=== PATIENT | female | born 1940 | race Caucasian/White ===

== ENCOUNTER 2020-10-13 20:44 | Inpatient (IN) | payer MEDICARE, SELFPAY ==
[2020-10-13] VITALS (7 sets, daily range): BP systolic 140; BP diastolic 74; PULSE 80–87; RESP 16–27; TEMP 36.7; O2SAT 84–100
--- NOTE | ~2020-10-13 | XR_ITS ---
EXAMINATION: XR chest 1V portable DATE: 10/14/2020 08:52 INDICATION: Congestive heart failure TECHNIQUE: frontal view of the chest was obtained. COMPARISON: Chest radiograph dated 10/13/2020 FINDINGS: Lung volumes are decreased, particularly on the right where there is elevation of the right hemidiaph ragm. Interval decrease in opacities in the bilateral mid and lower lung zones. No pleural effusion o r pneumothorax. The cardiomediastinal silhouette is normal. Surgical clips at the right axilla. IMPRESSION: 1. Decreasing opacities in the bilateral mid and lower lung zones which could represent improving pul monary edema, pneumonia or atelectasis. 2. Small lung volumes with elevation of the right hemidiaphragm. Reviewed, dictated and finalized at location A. IMPRESSION: 1. Decreasing opacities in the bilateral mid and lower lung zones which could r epresent improving pulmonary edema, pneumonia or atelectasis. 2. Small lung volumes with elevation of the right hemidiaphragm.
--- NOTE | ~2020-10-13 | XR_ITS ---
EXAMINATION: XR chest 1V portable INDICATION: Hypoxia and shortness of breath, cough TECHNIQUE: Portable AP chest at 2229 COMPARISON: None available FINDINGS: There are patchy bilateral airspace opacities throughout all lung zones. No pleural effusio n or pneumothorax is identified. There is elevation of the right hemidiaphragm. The cardiomediastinal silhouette is normal for technique. There are surgical clips in the right axilla. IMPRESSION: 1. Diffuse lung disease, consistent with pneumonia and/or pulmonary edema. Reviewed, dictated and finalized at location A.
--- NOTE | 2020-10-13 21:37 | ECG_ITS ---
Measurements Intervals [place] Rate: 86 P: 64 VT: 215 QRS: -22 QRSD: 77 T: -20 QT: 360 QTc: 431 Interpretive Statements SINUS OR ECTOPIC ATRIAL RHYTHM LOW QRS VOLTAGE IN PRECORDIAL LEADS INFERIOR INFARCT, AGE INDETERMINATE BASELINE ARTIFACT- II, AVR, AVF, V1, V3-V6 ABNORMAL ECG Electronically Signed On 10-14-2020 5:52:02 CDT by Chris Car D.O.
--- NOTE | 2020-10-13 21:39 | ED.SOB ---
HPI - SOB/Dyspnea General Chief Complaint: Shortness of Breath/Dyspnea Stated Complaint: sick, feels like pneumonia Time Seen by Provider: 10/13/20 21:29 History of Present Illness HPI Narrative: 80 yo female w/ h/o atrial fibrillation presents to the ED for SOB. She has had issues with mild GLOVER for awhile. This has become significantly worse over the past 10 days or so. She reports that she is not short of breath at rest, but with very minimal exertion she is instantly. On arrival here she was found to have a room air O2 sat of 84%, which drop further with movmenet. She says that feels like when she had pneumonia. She had her COVID vaccine more than 2 weeks ago, unsure of dates. No fever, chest pain, extremity swelling. Related Data Home Medications Medication Instructions Recorded Confirmed alprazolam QID PRN 10/14/20 apixaban [Eliquis] mg BID 10/14/20 ferrous sulfate [FeroSul] mg DAILY 10/14/20 furosemide DAILY 10/14/20 lisinopril DAILY 10/14/20 magnesium oxide 200 mg PO DAILY 10/14/20 10/14/20 omeprazole [Prilosec] 40 mg PO BID 10/14/20 10/14/20 potassium chloride meq PO DAILY 10/14/20 sotalol BID 10/14/20 Allergies Allergy/AdvReac Type Severity Reaction Status Date / Time No Known Allergies Allergy Verified 10/14/20 00:10 Review of Systems Review of Systems: All systems reviewed & are unremarkable except as noted in HPI and below Constitutional: Constitutional: Denies chills and Denies fever(s) Eyes: Eyes: Reports no additional eye complaints ENT: Denies sore throat Cardiovascular: Cardiovascular: Denies chest pain Respiratory: Respiratory: Reports dyspnea Gastrointestinal: Gastrointestinal: Denies abdominal pain, Denies nausea and Denies vomiting Genitourinary: Genitourinary: Reports no additional female genitourinary complaints Musculoskeletal: Musculoskeletal: Reports no additional musculoskeletal complaints Neurologic: Reports system reviewed and no additional complaints, except as documented [facility] Past Medical History Medical History (Updated 10/14/20 @ 01:42 by Jimbo Covington MD) Atrial fibrillation Breast cancer Hypertension Social History Social History (Updated 10/14/20 @ 01:38 by iJmbo Covington MD) Smoking status: Never smoker Alcohol intake: never Substance use: never Exam Const: General: healthy appearing, no acute distress and alert Orientation/consciousness: patient oriented x3 HENMT: Head: normal to inspection Neck: Neck: normal visual inspection Chest: Chest palpation & inspection: normal inspection of the chest Resp: Effort & Inspection: normal respiratory effort Auscultation: crackles diffuse Cardio: Rate: regular rate Rhythm: regular rhythm GI: GI Palp: Yes Soft to palpation and No Tenderness to palpation present (GI) Skin: General skin exam: normal color Neuro: General: patient oriented x3, moves all extremities, no focal motor deficits and CN's II-XI intact bilaterally Speech: normal speech Extrem: General: normal to inspection and no edema Psych: Mental Status: mental status grossly normal Affect: normal affect Attitude: cooperative Thought content: Yes Normal thought content present Course Vital Signs Vital signs: Vital Signs Temperature 36.7 C 10/13/20 21:29 Pulse Rate 87 10/13/20 21:29 Respiratory Rate 16 10/13/20 21:29 Blood Pressure 140/74 10/13/20 21:29 Pulse Oximetry 84 L 10/13/20 21:29 Temperature 36.7 C 10/13/20 21:29 Pulse Rate 84 10/14/20 00:31 Respiratory Rate 23 H 10/14/20 00:31 Blood Pressure 142/76 H 10/14/20 00:30 Pulse Oximetry 99 10/14/20 00:31 MDM - SOB/Dyspnea MDM Narrative Medical decision making narrative: CXR shows diffuse infiltrates. Most likely pneumonia. I will give abx and a single dose of lasix and dexamethasone as well given the uncertain etiology. Differential Diagnosis Differential diagnosis: Likely congestive heart failure, community acquired
[2020-10-13] MEDS: ALBUTEROL SULFATE NEB 2.5 MG/0.5 ML INH 5 MG INHALATION (21:47)
[2020-10-13] MEDS: IPRATROPIUM BR 0.02% INH SOLN 0.5 MG/2.5 ML VIAL INHALATION (21:47)
[2020-10-13 22:06] LABS: Alveolar/Arterial O2 Gradient 67.2 mmHg; Base Excess ABG 0.5 mEq/l (+/-2.0); Carboxyhemoglobin 0.8 % THb (0-2.0); Device NASAL CANNULA; Fractional Inspired Oxygen 28 %; HCO3 ABG 24.6 mEq/l (22.0-26.0); Methemoglobin ABG 0.3 %THb (0-1.5); Modified Allen's Test Pass; Oxygen Content ABG 17.6 %vol (16.0-22.0); Oxygen Saturation ABG 96.9 % (95.0-100.0); Oxyhemoglobin 95.2 % THb (90.0-100.0); PCO2 ABG 37.9 mmHg (35.0-45.0); PO2 ABG 87.7 mmHg (80.0-100.0); PO2 FiO2 Ratio Arterial Blood 3.13 %; Reduced Hemoglobin 3.7 %THb (0-5.0); Site Drawn LEFT RADIAL; Total Hemoglobin 13.1 g/dL (12.0-18.0)
[2020-10-13 22:13] LABS: Basophils Percent Auto 0.2 % (0.2-1.2); Eosinophils Absolute Auto 0.3 K/mm3 (0-0.3); Eosinophils Percent Auto 3.6 % (0-4.4); Hematocrit 39.4 % (37.0-47.0); Hemoglobin 12.8 g/dL (12.0-15.0); Immature Granulocyte Absolute 0.05 K/mm3 (0.00-0.031); Immature Granulocyte Percent A 0.6 % (0-0.5); Lymphocytes Absolute Auto 1.22 K/mm3 (0.9-3.2); Mean Corpuscular HGB Conc 32.5 g/dl (32-36); Mean Corpuscular Hemoglobin 28.1 pg (26-34); Mean Corpuscular Volume 86.4 fl (80-100); Mean Platelet Volume 10.5 fl (7.4-10.4); Monocytes Percent Auto 11.7 % (2.6-8.5); Neutrophils Absolute Auto 5.6 K/mm3 (1.3-6.7); Neutrophils Percent Auto 68.9 % (45.5-73.1); Platelet Count Result 315 k/mm3 (150-375); Red Blood Count 4.56 M/mm3 (4.2-5.4); Red Cell Distribution Width 13.1 % (11.5-14.5); White Blood Count 8.1 K/mm3 (4.5-10.0)
[2020-10-13 22:22] LABS: INR 1.2; Prothrombin Time 15.7 Seconds (11.1-14.7)
[2020-10-13 22:23] LABS: Partial Thromboplastin Time 28.4 SECONDS (22.3-36.8)
[2020-10-13 22:25] LABS: D Dimer 0.39 ug/mL (<0.48)
[2020-10-13 22:28] LABS: Alanine Aminotransferase 12 U/L (4-35); Albumin Level 4.3 g/dL (3.5-5.1); Alkaline Phosphatase 80 U/L (38-126); Anion Gap 6 mmol/L (8-16); Aspartate Amino Transferase 35 U/L (14-36); Bilirubin,Total 0.7 mg/dL (0.2-1.3); Blood Urea Nitrogen 14 mg/dL (7-17); Calcium 9.2 mg/dL (8.4-10.2); Carbon Dioxide 28 mmol/L (22-30); Chloride 104 mmol/L (98-107); Estimated Glomerular Filt Rate > 60; Glucose 127 mg/dL (65-105); Potassium 4.4 mmol/L (3.4-5.0); Sodium 138 mmol/L (137-145)
[2020-10-13 22:34] LABS: NT Pro B Type Natriuretic Pept 320 pg/mL (5-100); Troponin I < 0.012 ng/mL (0.000-0.034)
[2020-10-14] VITALS (15 sets, daily range): BP systolic 114–146; BP diastolic 58–79; PULSE 70–101; RESP 16–25; TEMP 36.3–36.5; O2SAT 91–99; BMI 25.0
[2020-10-14] MEDS: FUROSEMIDE INJ 40 MG/4 ML VIAL IV PUSH ×2 (00:25→09:51)
[2020-10-14] MEDS: DEXAMETHASONE SOD PHOS INJ 4 MG/ML VIAL 10 MG IV PUSH (00:26)
--- NOTE | 2020-10-14 02:11 | ADMGEN ---
This patient, Lazara Larkin, was admitted to [facility] Surg Room 311-01. Patient/family oriented to hospital policies and general routines including ID bracelet, bed and alarms, visiting hours, pain management, procedures, bathroom and other care routines, personal items, smoking policy, room service/diet, and visiting hours. Information on how to activate the Rapid Response Team has been discussed. Patient/Family are encouraged to report perceived risks to care and to ask questions if they do not understand what they are told or what they should do.
--- NOTE | 2020-10-14 05:32 | PM.IMHP ---
H&P: HPI History of Present Illness Date/Time: 10/14/20 05:32 Chief Complaint: Shortness of breath and cough Narrative: 80-year-old female with past medical history of paroxysmal atrial fibrillation on chronic anticoagulation and CHF who presented to the ER with progressive shortness of breath and cough. The patient reports that she has had 2 episodes of pneumonia in the last couple of years. She was suspicious that she had pneumonia again. She reports having dyspnea on exertion that is been worsening over the last 2 weeks. Her symptoms significantly worsened over the last 3 days. She reports that her cough has been productive of clear sputum. She has not been having any fevers. Her white count was normal on admission. She denies any chest pain, paroxysmal nocturnal dyspnea, orthopnea or lower extremity swelling. She actually denies a history of CHF but does take Lasix at home on a daily basis. She reports that her weight has been stable over the last couple of weeks. She has not had any recent changes in her cardiac medications. Her oven drier tender is Dr. Still. She has not had any recent ill contacts. She had her 2nd COVID vaccine 2 months ago. She has not been having any fevers, chills, loss of taste or loss of smell. On arrival to the ER the patient was noted to be hypoxic with saturations of 74% with activity and 84% at rest. She is placed on 4 L nasal cannula with improvement in her oxygen saturations to 100%. Review of Systems Review of Systems: Narrative: 12 systems were reviewed with pertinent positives and negatives per HPI. Except as documented in the HPI, all other systems were reviewed and are negative. [facility] Past Medical History Medical History (Updated 10/14/20 @ 08:42 by Tonya Guthrie DO) Anxiety Atrial fibrillation Breast cancer Hypertension Overactive bladder due to prolapse of female genital organ Surgical History Surgical History (Updated 10/14/20 @ 05:36 by Tonya Guthrie DO) History of cardiac radiofrequency ablation (~2012) History of right mastectomy Status post cataract extraction of both eyes with insertion of intraocular lens Family History Family History (Updated 10/14/20 @ 08:39 by Tonya Guthrie DO) Other No pertinent family history Social History Social History (Updated 10/14/20 @ 08:40 by Tonya Guthrie DO) Social History: She has been for 16 years. She lives with her only daughter. She is independent in activities of daily living and reports that she is quite active. She is a lifelong nonsmoker and does not drink alcohol use illicit substances. 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 Primary care physician: Dr. Elise Sauer Code status: Full code Healthcare power of title attorney: Paradise Sal Smoking status: Never smoker Alcohol intake: never Substance use: never Gender identity (if verbalized by the patient): Female Spiritual care concerns: No Meds Home Medications and Allergies Home Medications Medication Instructions Recorded Confirmed Type alprazolam [Xanax] 0.25 mg PO QID PRN 10/14/20 10/14/20 History apixaban [Eliquis] 5 mg PO BID 10/14/20 10/14/20 History ferrous sulfate [FeroSul] 325 mg PO DAILY 10/14/20 10/14/20 History furosemide 40 mg PO DAILY 10/14/20 10/14/20 History lisinopril 5 mg PO DAILY 10/14/20 10/14/20 History magnesium oxide 200 mg PO DAILY 10/14/20 10/14/20 History omeprazole [Prilosec] 40 mg PO BID 10/14/20 10/14/20 History potassium chloride 20 meq PO DAILY 10/14/20 10/14/20 History sotalol 120 mg PO BID 10/14/20 10/14/20 History Allergies Allergy/AdvReac Type Severity Reaction Status Date / Time No Known Allergies Allergy Verified 10/14/20 00:10 Vital Signs Vital Signs - 24 hr 10/13/20 21:29 10/13/20 21:35 10/13/20 22:05 Temperature 98.1 F Pulse Rate 87 85 Respiratory Rate 16 22 H Blood Pressure 140/74 Pulse Oximetry 84 L 100 10/13/20 2
[2020-10-14] MEDS: FERROUS SULFATE 324 MG TABLET PO (09:50)
[2020-10-14] MEDS: SOTALOL HCL 40 MG TABLET 120 MG PO ×2 (09:50→20:12)
[2020-10-14] MEDS: POTASSIUM CHLORIDE 20 MEQ TABLET.ER PO (09:50)
[2020-10-14] MEDS: lisinopriL 5 MG TABLET PO (09:51)
[2020-10-14] MEDS: PANTOPRAZOLE 40 MG TABLET PO ×2 (09:51→17:04)
[2020-10-14] MEDS: MAGNESIUM OXIDE 200 MG TABLET PO (09:51)
[2020-10-14] MEDS: APIXABAN 5 MG TABLET PO ×2 (09:51→20:12)
[2020-10-14 10:17] LABS: Anion Gap 8 mmol/L (8-16); Blood Urea Nitrogen 15 mg/dL (7-17); Calcium 9.1 mg/dL (8.4-10.2); Carbon Dioxide 27 mmol/L (22-30); Chloride 101 mmol/L (98-107); Estimated CRCL calculation 52 ml/min; Estimated Glomerular Filt Rate > 60; Glucose 177 mg/dL (65-105); Potassium 4.7 mmol/L (3.4-5.0); Sodium 136 mmol/L (137-145)
--- NOTE | 2020-10-14 12:22 | PM.IMPN ---
Progress Note: A&P Assessment and Plan (1) Acute respiratory failure with hypoxia: Code(s): J96.01 - Acute respiratory failure with hypoxia Status: Acute Assessment and Plan: Patient presents with worsening shortness of breath, productive cough, and fatigue over last 1.5 weeks prior to arrival. Improved; Tolerating room air today. Suspect pneumonia vs. pulmonary edema vs. both are contributing. See treatment plans below. Wean supplemental O2 as tolerated to keep O2 saturations > 90%. (2) CHF (congestive heart failure): Qualifiers: Heart failure chronicity: acute on chronic Heart failure type: unspecified Qualified Code(s): I50.9 - Heart failure, unspecified Code(s): I50.9 - Heart failure, unspecified Status: Acute Assessment and Plan: Type unknown. She follows with Dr Still from [facility]. She is unsure of when her last echocardiogram was, notes she has not missed any doses of her Lasix. Continue IV lasix; monitor daily weight, I&Os, and renal function. Continue IRMA inhibitor. Echocardiogram pending. (3) Pneumonia: Qualifiers: Laterality: bilateral Lung location: unspecified part of lung Pneumonia type: due to unspecified organism Qualified Code(s): J18.9 - Pneumonia, unspecified organism Code(s): J18.9 - Pneumonia, unspecified organism Status: Acute Assessment and Plan: On empiric antibiotics for possible pneumonia. Continue Rocephin (day 2). Switch azithromycin to doxycycline (day 1) to avoid interaction with her home sotalol. COVID PCR pending. She was vaccinated with both doses of Moderna around 2 months ago. Pneumococcal and legionella urine antigens pending. Check influenza. Continue supportive care - add albuterol MDI PRN, tylenol for fevers, incentive spirometry. (4) Atrial fibrillation: Code(s): I48.91 - Unspecified atrial fibrillation Status: Chronic Assessment and Plan: Rate controlled in sinus rhythm. Discontinue cardiac telemetry. Continue home sotalol and her home anticoagulation with Eliquis. Monitor. (5) Hypertension: Code(s): I10 - Essential (primary) hypertension Status: Chronic Assessment and Plan: Blood pressures stable today maintained on her home lisinopril. Monitor BP and adjust treatment as needed. (6) Anxiety: Code(s): F41.9 - Anxiety disorder, unspecified Status: Chronic Assessment and Plan: Stable. No acute issues. Continue her home Xanax PRN. Subjective Date/time seen: 10/14/20 1145 Interval history: Ms. Larkin is a very pleasant 80yo F admitted for shortness of breath with acute respiratory failure. She reports feeling much better this morning. She notes her shortness of breath has improved. She is still having a productive cough. She has not missed any doses of her Lasix. Denies orthopnea or lower extremity swelling. Denies chest pain. Still has some SOB with walking to restroom. Tolerating oral intake without nausea or vomiting. Review of Systems Review of Systems: All systems reviewed & are unremarkable except as noted in HPI and below Exam Narrative: Exam Narrative: General: Female resting comfortably supine in bed in no acute distress. HEENT: Normocephalic, EOMI, oral mucosa moist. Cardiovascular: Heart rate and rhythm regular. Telemetry review shows sinus rhythm with PACs rates in 80s at present. Respiratory: Diminished breath sounds REY with some faint bibasilar crackles. Respirations even and non-labored. Tolerating room air. Abdomen: Soft, non-tender, non-distended, bowel sounds present. Extremities: Peripheral pulses intact. No edema or pain to palpation. Neuro: Awake and alert
[2020-10-14 19:55] LABS: SARS-CoV-2 RNA PCR Negative
[2020-10-15 06:00] VITALS: BP 124/56; PULSE 77; RESP 18; TEMP 36.7; O2SAT 90
[2020-10-15 06:29] LABS: Potassium 4.3 mmol/L (3.4-5.0)
[2020-10-15 08:00] VITALS: PULSE 80; RESP 18; O2SAT 97
[2020-10-15 09:25] VITALS: PULSE 80
[2020-10-15] MEDS: SOTALOL HCL 40 MG TABLET 120 MG PO (09:25)
[2020-10-15] MEDS: PANTOPRAZOLE 40 MG TABLET PO (09:25)
[2020-10-15] MEDS: FUROSEMIDE INJ 40 MG/4 ML VIAL IV PUSH (09:25)
[2020-10-15] MEDS: lisinopriL 5 MG TABLET PO (09:26)
[2020-10-15] MEDS: FERROUS SULFATE 324 MG TABLET PO (09:26)
[2020-10-15] MEDS: APIXABAN 5 MG TABLET PO (09:26)
[2020-10-15] MEDS: POTASSIUM CHLORIDE 20 MEQ TABLET.ER PO (09:26)
[2020-10-15] MEDS: MAGNESIUM OXIDE 200 MG TABLET PO (09:26)
[2020-10-15 09:36] VITALS: O2SAT 97
--- NOTE | 2020-10-15 10:35 | PM.DS ---
DS: Admitting Diagnosis Admitting Diagnosis Admitting Diagnosis: Acute respiratory failure with hypoxia DS: Discharge Diagnosis Discharge Diagnosis (1) Acute respiratory failure with hypoxia: Code(s): J96.01 - Acute respiratory failure with hypoxia Status: Acute Assessment and Plan: Date of Admission 10/13/20 Date of Discharge 10/15/20 Ms. Larkin is a very pleasant 80yo F with history of CHF, hypertension, anxiety, and paroxysmal atrial fibrillation on long-term anticoagulation with Eliquis who presented to the ED for evaluation of shortness of breath and productive cough worsening over the last 1 and a half weeks prior to arrival. She was started on supplemental oxygen in the ER when her O2 saturations were found to be 84% at rest on room air. Imaging demonstrated diffuse lung disease throughout all lung zones which may represent pneumonia and/or pulmonary edema. She responded quickly to a dose of IV lasix with improved shortness of breath. She was tested for COVID-19 by PCR and negative 10/14/20. She was treated for possible community acquired pneumonia with IV ceftriaxone and doxycycline (azithromycin avoided to prevent reaction with home sotalol). Her supplemental oxygen was weaned and she is tolerating room air with adequate oxygen saturations for over 24 hours. She follows with Dr Still from [facility] for her atrial fibrillation and she is stable rate controlled on her home Sotalol, maintained on her home anticoagulation with Eliquis. She is feeling much improved with the therapy outlined above and she is hemodynamically stable for discharge today 10/15 and she is comfortable with her discharge plan. She is encouraged to follow up with her PCP in 1 to 2 weeks and to follow up with Dr Still. Patient presents with worsening shortness of breath, productive cough, and fatigue over last 1.5 weeks prior to arrival. Improved; Tolerating room air today. Suspect pneumonia vs. pulmonary edema vs. both are contributing. See treatment plans below. (2) CHF (congestive heart failure): Qualifiers: Heart failure chronicity: acute on chronic Heart failure type: unspecified Qualified Code(s): I50.9 - Heart failure, unspecified Code(s): I50.9 - Heart failure, unspecified Status: Acute Assessment and Plan: Type unknown. She follows with Dr Still from [facility]. She is unsure of when her last echocardiogram was, notes she has not missed any doses of her Lasix. She was treated with 3 doses of IV lasix and will discharge with her home dose of oral lasix. Maintained on her home IRMA inhibitor. Echocardiogram will be cancelled as she is feeling well and will follow up with her established aeronautical test engineer after discharge. (3) Pneumonia: Qualifiers: Laterality: bilateral Lung location: unspecified part of lung Pneumonia type: due to unspecified organism Qualified Code(s): J18.9 - Pneumonia, unspecified organism Code(s): J18.9 - Pneumonia, unspecified organism Status: Acute Assessment and Plan: On empiric antibiotics for possible pneumonia. Continue Rocephin (day 3). Switch azithromycin to doxycycline (day 2) to avoid interaction with her home sotalol. Discharge with oral Augmentin to complete the course. COVID PCR negative. Pneumococcal and legionella urine antigens pending. Supportive care - albuterol MDI PRN, tylenol for fevers, incentive spirometry. Encouraged to take incentive spirometer home. (4) Atrial fibrillation: Code(s): I48.91 - Unspecified atrial fibrillation Status: Chronic Assessment and Plan: Rate controlled in sinus rhythm. Continue home sotalol and her home anticoagulation with Eliquis. (5) Hypertension: Code(s): I10
[2020-10-17 18:56] LABS: Pneumococcal Antigen Urine Not Detected (Not Detected)
[2020-10-18 17:41] LABS: Legionella pneumophila Ag Ur Not Detected (Not Detected)
== END 2020-10-15 11:45 | disposition home or self-care (01) | DRG 193 ==
LOC: ANHED 23:57 → ANH3MEDSUR 10-14 01:42
PROVIDERS: Admitting Provider Internal Medicine; Emergency Provider Emergency Medicine; PCP Internal Medicine; Visit Provider Physician Assistant
DX: J18.9 Pneumonia, unspecified organism (principal); J96.01 Acute respiratory failure with hypoxia; I11.0 Hypertensive heart disease with heart failure; I50.9 Heart failure, unspecified; I48.0 Paroxysmal atrial fibrillation; F41.9 Anxiety disorder, unspecified; Z20.822 Contact with and (suspected) exposure to COVID-19; Z79.01 Long term (current) use of anticoagulants; Z79.899 Other long term (current) drug therapy; Z85.3 Personal history of malignant neoplasm of breast; Z98.42 Cataract extraction status, left eye; Z98.41 Cataract extraction status, right eye; Z96.1 Presence of intraocular lens
CPT/HCPCS: 36415; 36600; 71045; 80048; 80053; 82375; 82805; 83050; 83605; 83880; 84132; 84484; 85025; 85380; 85610; 85730; 87040; 87449; 87899; 93005; 94640; 99291; A9270; C9803; J0456; J0696; J1100; J1940; U0003; U0005

== ENCOUNTER 2022-01-30 12:35 | Outpatient (CLI) | payer MEDICARE, SELFPAY ==
--- NOTE | ~2022-01-30 | XR_ITS ---
EXAMINATION: SNIFF TEST W/O CXR +FLUORO<1HR DATE: 04/24/11 11:13:00 INDICATION: Shortness of breath and disorder of diaphragm. TECHNIQUE: Fluoroscopy was utilized for evaluation of diaphragmatic excursion with rapid inspiration. Fluoroscopy exposure time was 0.1 minutes. Total of 181 fluoroscopic images were recorded. COMPARISON: Chest radiograph dated 10/14/2020 FINDINGS: Paradoxical cephalad excursion of the elevated right hemidiaphragm with rapid inspiration. Visualized portions of lung are clear. Heart size is normal. IMPRESSION: 1. Paradoxical cephalad extrusion of the right hemidiaphragm with rapid inspiration consistent with r ight phrenic nerve palsy. Reviewed, dictated and finalized at location A. IMPRESSION: 1. Paradoxical cephalad extrusion of the right hemidiaphragm with rapid inspira tion consistent with right phrenic nerve palsy.
[2022-01-30 12:45] VITALS: PULSE 93; O2SAT 83
[2022-01-30 12:47] VITALS: PULSE 97; O2SAT 86
[2022-01-30 12:50] VITALS: PULSE 94; O2SAT 90
[2022-01-30 13:05] VITALS: PULSE 93; O2SAT 92
--- NOTE | 2022-01-30 13:14 | HOMEO2EVAL ---
Evaluation was performed at [facility] Home Oxygen Evaluation RC: Home Oxygen (O2) Evaluation Start: 01/30/22 13:08 Freq: Status: Active Protocol: RPE Activity Type Activity Date Activity User E-sign Co-sign Detail Recorded Client Recorded Date Recorded By Document 01/30/22 12:45 [facility] [email or web address] 01/30/22 13:11 [facility] Document 01/30/22 12:47 [facility] [email or web address] 01/30/22 13:14 [facility] Document 01/30/22 12:50 [facility] [email or web address] 01/30/22 13:14 [facility] Document 01/30/22 13:05 [facility] [email or web address] 01/30/22 13:14 [facility] 01/30/22 01/30/22 01/30/22 12:45 12:47 12:50 Home O2 Evaluation Test Phase Resting Resting Resting Oxygen Delivery Room Air Nasal Cannula Nasal Cannula Oxygen Flow Rate (L/min) 1 2 Pulse Oximetry (90-100 %) 83 L 86 L 90 Pulse Rate (60-100 beats/min) 93 97 94 Ambulation Distance (feet) 400 Ambulation Distance (meters) 121.91 Treatment Charges 01/30/22 13:05 Home O2 Evaluation Test Phase Resting Oxygen Delivery Room Air Oxygen Flow Rate (L/min) Pulse Oximetry (90-100 %) 92 Pulse Rate (60-100 beats/min) 93 Ambulation Distance (feet) Ambulation Distance (meters) Treatment Charges O2 Evaluation - Outpatient
--- NOTE | 2022-01-30 13:19 | HOMEO2EVAL ---
Evaluation was performed at [facility] Home Oxygen Evaluation RC: Home Oxygen (O2) Evaluation Start: 01/30/22 13:08 Freq: Status: Active Protocol: RPE Activity Type Activity Date Activity User E-sign Co-sign Detail Recorded Client Recorded Date Recorded By Document 01/30/22 12:45 [facility] [email or web address] 01/30/22 13:11 [facility] Document 01/30/22 12:47 [facility] [email or web address] 01/30/22 13:14 [facility] Document 01/30/22 12:50 [facility] [email or web address] 01/30/22 13:14 [facility] Document 01/30/22 13:05 [facility] [email or web address] 01/30/22 13:14 [facility] 01/30/22 01/30/22 01/30/22 12:45 12:47 12:50 Home O2 Evaluation Test Phase Resting Resting Resting Oxygen Delivery Room Air Nasal Cannula Nasal Cannula Oxygen Flow Rate (L/min) 1 2 Pulse Oximetry (90-100 %) 83 L 86 L 90 Pulse Rate (60-100 beats/min) 93 97 94 Ambulation Distance (feet) 400 Ambulation Distance (meters) 121.91 Home Oxygen Evaluation Comments Treatment Charges 01/30/22 13:05 Home O2 Evaluation Test Phase Resting Oxygen Delivery Room Air Oxygen Flow Rate (L/min) Pulse Oximetry (90-100 %) 92 Pulse Rate (60-100 beats/min) 93 Ambulation Distance (feet) Ambulation Distance (meters) Home Oxygen Evaluation Comments PATIENT REQUIRES 2LPM NASAL CANNULA WITH ACTIVITY. Treatment Charges O2 Evaluation - Outpatient
[2022-01-30 14:31] LABS: Rheumatoid Factor < 8.6 IU/ML (<12)
[2022-02-02 22:53] LABS: Anti Cyclic Citrullinated Pept <16 Units (<20)
[2022-02-06 14:19] LABS: ANCA Screen Negative (Negative)
== END 2022-01-30 12:36 | disposition home or self-care (01) ==
LOC: ANHPFT 12:36
PROVIDERS: PCP Internal Medicine; Visit Provider Internal Medicine Pulmonary Disease
DX: J84.9 Interstitial pulmonary disease, unspecified (principal); J98.6 Disorders of diaphragm; Z87.891 Personal history of nicotine dependence
CPT/HCPCS: 36415; 76000; 86036; 86200; 86430; 94618